=== PATIENT | female | born 1945 | race Caucasian/White ===

== ENCOUNTER 2022-07-21 15:25 | Emergency (ER) | payer MEDICARE, BC ==
[~2022-07-21] VITALS: Ht 149.9 cm; Wt 86.3 kg
[2022-07-21 15:43] VITALS: BP 168/98
== END 2022-07-21 20:00 | disposition home or self-care (01) ==
LOC: ER 15:27
DX: S01.01XA Laceration without foreign body of scalp, initial encounter (principal); S09.90XA Unspecified injury of head, initial encounter; N18.9 Chronic kidney disease, unspecified; R51.9 Headache, unspecified; Z90.49 Acquired absence of other specified parts of digestive tract; Z90.710 Acquired absence of both cervix and uterus; W19.XXXA Unspecified fall, initial encounter; Y93.89 Activity, other specified; Y92.89 Other specified places as the place of occurrence of the external cause; Y99.8 Other external cause status
CPT/HCPCS: 12001; 70450; 72125; 93005; 99284

== ENCOUNTER 2022-08-14 10:51 | Emergency (ER) | payer MEDICARE, BC ==
[~2022-08-14] VITALS: Ht 147.3 cm; Wt 87.3 kg
[2022-08-14 10:57] VITALS: BP 155/76
[2022-08-14] MEDS ORDERED: LIDOcaine 1% W/epiNEPHrine 1:100,000 20ml vial SQ ONE (14:25)
[2022-08-14] MEDS ORDERED: LIDOCAINE 1%/EPI 1:100,000 inj. 10 ML multi-dose vial SQ ONE (14:27)
== END 2022-08-14 15:24 | disposition home or self-care (01) ==
LOC: ER 10:51
DX: S01.01XA Laceration without foreign body of scalp, initial encounter (principal); G89.29 Other chronic pain; Z90.710 Acquired absence of both cervix and uterus; Z90.49 Acquired absence of other specified parts of digestive tract; Z91.81 History of falling; W19.XXXA Unspecified fall, initial encounter; Y93.89 Activity, other specified; Y92.89 Other specified places as the place of occurrence of the external cause; Y99.8 Other external cause status
CPT/HCPCS: 12001; 12011; 70450; 72125; 99284